=== PATIENT | female | born 1985 | race Caucasian/White ===

== ENCOUNTER → 2020-10-30 09:11 | Outpatient (CLI) | payer BC, SELFPAY ==
--- NOTE | ~2020-10-30 | MM_ITS ---
EXAMINATION: MM screening heraclio BI w toya HISTORY: Screening TECHNIQUE: Craniocaudal and mediolateral oblique 3-D tomosynthesis images were obtained and synthetic 2-D images were generated. CAD analysis was submitted and interpreted. COMPARISON: No prior mammogram is available for comparison at this institution. BREAST PARENCHYMAL COMPOSITION: There are scattered areas of fibroglandular density. FINDINGS: There is no evidence of suspicious mass, calcification, or architectural distortion to sugg est malignancy in either breast. There has been no suspicious interval change. IMPRESSION: 1. No mammographic evidence of malignancy. 2. Recommend routine screening mammography in one year. BI-RADS Category 1: Negative Reviewed, dictated and finalized at location A.
== END ==
PROVIDERS: PCP Family Medicine; Visit Provider Obstetrics & Gynecology
DX: Z12.31 Encounter for screening mammogram for malignant neoplasm of breast (principal)
CPT/HCPCS: 77063; 77067

== ENCOUNTER 2022-02-06 00:03 | Day surgery (SDC) | payer BC, SELFPAY ==
[2022-02-01 15:26] VITALS: BMI 36.0
[2022-02-06 06:39] VITALS: BP 123/71; PULSE 79; RESP 18; TEMP 36.1; O2SAT 100; BMI 36.6
[2022-02-06] MEDS: LACTATED RINGERS 1,000 ML 150 ML IV CONT (06:56)
--- NOTE | 2022-02-06 07:28 | PM.HPGS ---
History of Present Illness History of Present Illness Consent: Risks, benefits, and alternatives have been discussed and questions answered. Patient agrees to proceed with procedure. Chief complaint: GERD Narrative: Melba Martínez is a 36 year old female Referred by Dr. Bustos is office. Patient reports over the last 8 weeks has had intermittent heartburn. Also epigastric pain. Pain initially seemed to be precipitated several hours after taking Excedrin for migraine headaches. Sometimes the pain is burning sometimes less clearly define. she reports the pain improves on eating. It is current intermittently. Initially improved after a trial of Prilosec. More recently has been on pantoprazole but notices pain but less frequently. She is referred for an EGD. Review of Systems Review of Systems: Review of systems noncontributory. [facility] Past Medical History Medical History Abnormal Pap smear of cervix ASCUS NEG HPV 2011 Acute pain of right knee Acute pharyngitis, unspecified (12/10/15) Anxiety BMI 34.0-34.9,adult BMI 35.0-35.9,adult BMI 36.0-36.9,adult BMI greater than 30 Chondromalacia of right patella Depression Dietary counseling and surveillance (10/15/15) Epigastric pain Itching Left foot pain Strep pharyngitis Family History Family History Grandparent Hypertension Diabetes mellitus Father No problems noted. Mother Hypertension Diabetes mellitus controlled with diet Atrial fibrillation Sibling No problems noted. Other Cerebrovascular accident Family history of coronary artery disease Social History Social History Smoking status: Never smoker Second hand tobacco smoke exposure: No Alcohol intake: current Substance use: never Substance use type: does not use Living arrangements: with family Additional living arrangements comments[facility] [employer] Parents district Additional occupation/education comments: teacher Gender identity (if verbalized by the patient): Female Sexual Orientation (if Verbalized by the Patient): Straight or Heterosexual Spiritual care concerns: No Meds Home Medications and Allergies Home Medications Medication Instructions Recorded Confirmed Type norgestimate-ethinyl estradiol 1 tablet PO DAILY #84 tabs 10/26/21 02/06/22 Rx 0.18 mg/0.215mg/0.25mg-35 mcg(28)tablet (Tri-Sprintec (28)) citalopram 20 mg tablet 20 mg PO DAILY #90 tabs 12/01/21 02/06/22 Rx loratadine-pseudoephedrine ER 10 1 tablet PO DAILY #90 tabs 12/19/21 02/06/22 Rx mg-240 mg tablet,extended [id number] (Claritin-D 24 Hour) pantoprazole 40 mg tablet,delayed 40 mg PO QAM 8 weeks #56 tabs 01/18/22 02/06/22 Rx release skfnqqhn-xdi-ebrv-FA-Ca carb-vit K 1 tablet PO DAILY 02/01/22 02/06/22 History 18 mg iron-400 mcg-500 mg tablet Allergies Allergy/AdvReac Type Severity Reaction Status Date / Time No Known Allergies Allergy Verified 02/06/22 06:45 Vital Signs Vital Signs - 24 hr 02/06/22 06:39 Temperature 97.0 F L Pulse Rate 79 Respiratory Rate 18 Blood Pressure 123/71 Pulse Oximetry 100 Oxygen Delivery Room Air Exam Narrative: Physical exam reveals patient to be alert. Vital signs stable. HEENT exam is unremarkable. Patient is anicteric. Lungs are clear to auscultation and percussion. Heart is without murmur or extra sounds. Abdomen bowel sounds present soft pain is localized to the mid epigastric area. Not tender today. Assessment and Plan Assessment and plan (1) Epigastric abdominal pain: Code(s): R10.13 - Epigastric pain Status: Acute Assessment and Plan: Patient with epigastric pain. Has been present for approximately 8 Months. Occurs intermittently. Plan is for EGD to assess
--- NOTE | 2022-02-06 07:53 | WPDANESEPPF ---
Anes - Initial Pre Proc Eval Procedure: Operation Date: 02/06/22 08:00 Proposed Procedures p Esophagogastroduodenoscopy EGD - Darren Billingsley MD Date/Time: 02/06/22 07:53 Surgeon: Darren Billingsley MD Pre Op Diagnosis: GERD Patient Data Age: 36 Gender: F Height: 1.63 m Weight: 96.8 kg Last Vital Signs Temp 97.0 F L 02/06/22 06:39 Pulse 79 02/06/22 06:39 Resp 18 02/06/22 06:39 BP 123/71 02/06/22 06:39 Pulse Ox 100 02/06/22 06:39 O2 Del Method Room Air 02/06/22 06:39 Allergies Allergy/AdvReac Type Severity Reaction Status Date / Time No Known Allergies Allergy Verified 02/06/22 06:45 Home Medications Medication Instructions Recorded Confirmed Type norgestimate-ethinyl estradiol 1 tablet PO DAILY #84 tabs 10/26/21 02/06/22 Rx 0.18 mg/0.215mg/0.25mg-35 mcg(28)tablet (Tri-Sprintec (28)) citalopram 20 mg tablet 20 mg PO DAILY #90 tabs 12/01/21 02/06/22 Rx loratadine-pseudoephedrine ER 10 1 tablet PO DAILY #90 tabs 12/19/21 02/06/22 Rx mg-240 mg tablet,extended [id number] (Claritin-D 24 Hour) pantoprazole 40 mg tablet,delayed 40 mg PO QAM 8 weeks #56 tabs 01/18/22 02/06/22 Rx release jojqnghs-zpn-joos-FA-Ca carb-vit K 1 tablet PO DAILY 02/01/22 02/06/22 History 18 mg iron-400 mcg-500 mg tablet Patient hx anesthesia problems: none Family hx anesthesia problems: none Results Review: All pre-operative results and documents have been reviewed as part of the pre-operative evaluation. [facility] Past Medical History Medical History Abnormal Pap smear of cervix ASCUS NEG HPV 2011 Acute pain of right knee Acute pharyngitis, unspecified (12/10/15) Anxiety BMI 34.0-34.9,adult BMI 35.0-35.9,adult BMI 36.0-36.9,adult BMI greater than 30 Chondromalacia of right patella Depression Dietary counseling and surveillance (10/15/15) Epigastric pain Itching Left foot pain Strep pharyngitis Family History Family History Grandparent Hypertension Diabetes mellitus Father No problems noted. Mother Hypertension Diabetes mellitus controlled with diet Atrial fibrillation Sibling No problems noted. Other Cerebrovascular accident Family history of coronary artery disease Social History Social History Smoking status: Never smoker Second hand tobacco smoke exposure: No Alcohol intake: current Substance use: never Substance use type: does not use Living arrangements: with family Additional living [facility] comments[facility] Additional occupation/education comments: teacher Gender identity (if verbalized by the patient): Female Sexual Orientation (if Verbalized by the Patient): Straight or Heterosexual Spiritual care concerns: No Anes - Eval Final PreProcedure Day of Procedure 02/06/22 07:53 Patient weight: obese Heart: regular rate and rhythm Lungs: clear to auscultation Airway: Mallampati scale class II Neurological: alert and oriented Last oral intake: >/= 8 hours ASA classification: II Emergent: no Anesthetic plan: proceed Anesthesia type and monitoring: general GIVS and standard monitoring Results Review: All pre-operative results and documents have been reviewed as part of the pre-operative evaluation. Informed Consent: The patient's anesthetic plan and its attendant risks and benefits were discussed with the patient/family/POA. Questions were solicited and answers provided to the satisfaction of the patient/family/POA.
[2022-02-06 08:15] VITALS: BP 125/101; PULSE 65; RESP 18; O2SAT 95
[2022-02-06 08:31] VITALS: BP 114/73; PULSE 64; RESP 18; O2SAT 100
== END 2022-02-06 08:45 | disposition home or self-care (01) ==
PROVIDERS: PCP Family Medicine; Visit Provider Internal Medicine Gastroenterology
PROC: 0DJ08ZZ Inspection of Upper Intestinal Tract, Via Natural or Artificial Opening Endoscopic (ICD-10-PCS; CPT 43235; principal; 2022-02-06 08:00)
DX: R10.13 Epigastric pain (principal); F32.A Depression, unspecified; F41.9 Anxiety disorder, unspecified; E66.9 Obesity, unspecified; Z68.36 Body mass index [BMI] 36.0-36.9, adult
CPT/HCPCS: 43239; 87081; J2704; J7120

== ENCOUNTER 2022-09-27 12:48 | Outpatient (CLI) | payer BC, SELFPAY ==
--- NOTE | ~2022-09-27 | XR_ITS ---
EXAMINATION: XR abdomen/kub 1V DATE: 09/27/2022 13:00 INDICATION: Unspecified abdominal pain. Left flank pain. TECHNIQUE: A supine view of the abdomen on 2 radiographs was obtained. COMPARISON: None. FINDINGS: There are no dilated loops of bowel. There is a moderate volume of stool in the colon. Calc ifications in the pelvis are likely phleboliths. Surgical clips in the right upper quadrant are likel y from cholecystectomy. IMPRESSION: 1. Normal bowel gas pattern. Reviewed, dictated and finalized at location A.
== END 2022-09-27 12:49 | disposition home or self-care (01) ==
LOC: ANHIMG 12:50
PROVIDERS: PCP Family Medicine; Visit Provider Nurse Practitioner Family
DX: R31.9 Hematuria, unspecified (principal); R10.9 Unspecified abdominal pain
CPT/HCPCS: 74018

== ENCOUNTER 2024-01-16 15:51 | Outpatient (CLI) | payer BC, SELFPAY ==
--- NOTE | ~2024-01-16 | XR_ITS ---
XR wrist LT 2V Ordering provider: Iban Yeboah NP History: . M25.539 - Pain in unspecified wrist . Comparison: None. FINDINGS: BONES: No acute fracture or dislocation. No definite scaphoid fracture. JOINT SPACES: Well maintained. SOFT TISSUES: Normal. IMPRESSION: No acute osseous abnormality left wrist. Reviewed, dictated and finalized at location A.
== END 2024-01-16 15:52 | disposition home or self-care (01) ==
LOC: ANHIMG 15:55
PROVIDERS: PCP Family Medicine
DX: M25.532 Pain in left wrist (principal)
CPT/HCPCS: 73100

== ENCOUNTER 2024-02-01 15:06 | Outpatient (CLI) | payer BC, SELFPAY ==
--- NOTE | ~2024-02-01 | US_ITS ---
EXAMINATION: US soft tissue UE LT DATE: 02/01/2024 15:18 INDICATION: Palpable mass of the left wrist TECHNIQUE: Multiple grayscale and Doppler ultrasound images of the region of concern overlying the ca rpus of the left wrist were obtained. COMPARISON: None FINDINGS/IMPRESSION: Palpable abnormality corresponds to a 10 x 3 x 6 mm anechoic fluid collection most consistent with a ganglion cyst which appears to arise from one of the joints of the carpus. Reviewed, dictated and finalized at location B. [facility]
== END 2024-02-01 15:07 | disposition home or self-care (01) ==
LOC: MICIMG 15:07
PROVIDERS: PCP Family Medicine; Visit Provider Physician Assistant Medical
DX: R22.32 Localized swelling, mass and lump, left upper limb (principal)
CPT/HCPCS: 76882